=== PATIENT | female | born 1985 | race Caucasian/White ===

== ENCOUNTER 2021-05-08 09:41 | Emergency (ER) | payer MEDICAID, SELFPAY ==
[~2021-05-08] VITALS: Ht 160 cm; Wt 68.0 kg
[2021-05-08 10:35] VITALS: BP_SYST 118
--- NOTE | 2021-05-08 10:35 | NUR ---
Patient to ER bed 6 to gown for evaluation. Side rails up.
--- NOTE | 2021-05-08 10:40 | NUR ---
PT PRESENTS TO ED C/O COVID SYMPTOMS. PT REPORTS BEING VACCINATED.
--- NOTE | 2021-05-08 11:00 | NUR ---
ETELVINA Hoffman at bedside examining patient.
[2021-05-08 12:00] VITALS: BP_SYST 118
--- NOTE | 2021-05-08 12:00 | NUR ---
Patient given written and verbal discharge instructions and verbalizes understanding. ER MD discussed with patient the results and treatment provided. Patient in stable condition. ID arm band removed. NO Rx given. Patient educated on pain management and to follow up with PMD. Pain Scale 3. Opportunity for questions provided and answered. Medication side effect fact sheet provided.
== END 2021-05-08 12:00 | disposition home or self-care (01) ==
LOC: SED 09:41
DX: U07.1 COVID-19 (principal)
CPT/HCPCS: 36415; 99283